=== PATIENT | female | born 2000 | race Caucasian/White ===

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

== ENCOUNTER → 2021-01-03 10:20 | Outpatient (BNVA) | payer OTHER, SELFPAY | PROVIDERS: Family Provider Nurse Practitioner Family; PCP Nurse Practitioner Family; Visit Provider Nurse Practitioner Women's Health | DX: O20.9 Hemorrhage in early pregnancy, unspecified (principal); N92.6 Irregular menstruation, unspecified; Z3A.00 Weeks of gestation of pregnancy not specified | CPT/HCPCS: 81025; 84702; 85027; 86850; 86900; 87491; 87591; 87661 ==

== ENCOUNTER → 2021-02-02 08:57 | Outpatient (BNVA) | payer OTHER, SELFPAY | PROVIDERS: Family Provider Nurse Practitioner Family; PCP Nurse Practitioner Family; Visit Provider Obstetrics & Gynecology | DX: Z34.90 Encounter for supervision of normal pregnancy, unspecified, unspecified trimester (principal) | CPT/HCPCS: 80307; 84315; 84443; 85025; 86592; 86762; 86787; 86803; 86850; 86900; 87086; 87340; 87491; 87591; 87661 ==

== ENCOUNTER → 2021-04-10 14:34 | Outpatient (BNVA) | payer BC, SELFPAY | PROVIDERS: Family Provider Nurse Practitioner Family; Visit Provider Obstetrics & Gynecology | DX: O09.899 Supervision of other high risk pregnancies, unspecified trimester (principal); Z3A.00 Weeks of gestation of pregnancy not specified | CPT/HCPCS: 81000 ==

== ENCOUNTER 2021-04-22 20:52 | Outpatient (CLI) | payer BC, SELFPAY ==
[2021-04-22 20:59] VITALS: BP 130/75; PULSE 93; RESP 16; TEMP 36.8; BMI 31.1
--- NOTE | 2021-04-22 21:07 | PC.NURSE ---
Patient states you know actually I'm feeling a lot better now. Asked patient what she would rate her pain now and she states I have a dull feeling where it was hurting but not really hurting now.
== END 2021-04-22 21:22 | disposition home or self-care (01) ==
LOC: OPOB 20:52 → OBGYN 20:55
PROVIDERS: Family Provider Nurse Practitioner Family; Visit Provider Obstetrics & Gynecology
DX: O26.899 Other specified pregnancy related conditions, unspecified trimester (principal); Z3A.00 Weeks of gestation of pregnancy not specified; R10.9 Unspecified abdominal pain
CPT/HCPCS: 99211

== ENCOUNTER → 2021-05-29 09:36 | Outpatient (BNVA) | payer BC, SELFPAY | PROVIDERS: Family Provider Nurse Practitioner Family; Visit Provider Obstetrics & Gynecology | DX: O09.899 Supervision of other high risk pregnancies, unspecified trimester (principal); O26.899 Other specified pregnancy related conditions, unspecified trimester; Z67.91 Unspecified blood type, Rh negative; Z3A.00 Weeks of gestation of pregnancy not specified | CPT/HCPCS: 82950; 84315; 85025; 86850 ==

== ENCOUNTER → 2021-06-08 08:10 | Outpatient (BNVA) | payer BC, SELFPAY | PROVIDERS: Family Provider Nurse Practitioner Family; Visit Provider Obstetrics & Gynecology | DX: O09.899 Supervision of other high risk pregnancies, unspecified trimester (principal); Z3A.00 Weeks of gestation of pregnancy not specified | CPT/HCPCS: 82951; 82952 ==

== ENCOUNTER → 2021-07-13 11:06 | Outpatient (BNVA) | payer BC, SELFPAY | PROVIDERS: Family Provider Nurse Practitioner Family; Visit Provider Obstetrics & Gynecology | DX: O09.899 Supervision of other high risk pregnancies, unspecified trimester (principal); D64.9 Anemia, unspecified; Z3A.00 Weeks of gestation of pregnancy not specified | CPT/HCPCS: 84315; 85025 ==

== ENCOUNTER 2021-07-21 09:20 | Outpatient (CLI) | payer BC, SELFPAY ==
[2021-07-21 09:25] VITALS: BMI 33.3
--- NOTE | 2021-07-21 09:30 | US_ITS ---
WS: [id number] Exam: US OB BPP wo NST [id number] Date/Time of Exam: 07/21/2021 10:17 AM Reason For Exam: GESTIONAL DIABETIC Viable intrauterine with single breech fetus noted. Fundal posterior placenta. Cervix is cl osed. Viable intrauterine with single breech fetus is noted. Biophysical profile score as follows: Amniotic fluid volume 2 tone 2 body movement 2 breathing movement 2 A total of 8/8 points US/US OB BPP NST [id number] IMPRESSION: Biophysical profile score of 8 of possible 8 points.
[2021-07-21 09:39] VITALS: BP 122/66; PULSE 94
[2021-07-21 12:25] VITALS: BP 122/66; PULSE 94; RESP 18; TEMP 36.9
== END 2021-07-21 11:40 | disposition home or self-care (01) ==
LOC: OPOB 09:27 → OBGYN 09:28
PROVIDERS: Family Provider Nurse Practitioner Family; PCP Registered Nurse; Visit Provider Obstetrics & Gynecology
DX: O24.419 Gestational diabetes mellitus in pregnancy, unspecified control (principal); Z3A.00 Weeks of gestation of pregnancy not specified
CPT/HCPCS: 59025; 76819; 99211

== ENCOUNTER 2021-07-28 10:53 | Outpatient (CLI) | payer BC, SELFPAY ==
--- NOTE | 2021-07-28 11:00 | US_ITS ---
WS: [id number] BIOPHYSICAL PROFILE AMNIOTIC FLUID HISTORY: gestational diabetes COMPARISON: 07/21/2021 Cardiac activity: 136 bpm. Cervix: closed. Presentation: Breech. Placenta: Fundal, no previa or abruption. Placenta grade: 1 Parameters are as follows: Breathin Movement: 2 Tone: 2 Fluid volume: 2 Amniotic fluid index: 11.6 cm. Largest vertical pocket of amniotic fluid is 5.0 cm. US/US OB BPP wo NST [id number] IMPRESSION: 1. Biophysical profile score: 8/8. 2. Normal amniotic fluid index. 3. Breech.
== END 2021-07-28 10:54 | disposition home or self-care (01) ==
LOC: OPOB 10:59
PROVIDERS: Family Provider Nurse Practitioner Family; PCP Registered Nurse; Visit Provider Obstetrics & Gynecology
DX: O24.419 Gestational diabetes mellitus in pregnancy, unspecified control (principal); Z3A.00 Weeks of gestation of pregnancy not specified
CPT/HCPCS: 76819; 84315; 87081

== ENCOUNTER 2021-08-03 14:50 | Outpatient (CLI) | payer BC, SELFPAY ==
[2021-08-03] VITALS (11 sets, daily range): BP systolic 111–170; BP diastolic 56–85; PULSE 78–130; TEMP 36.1–36.3
--- NOTE | 2021-08-03 15:06 | USR_ITS ---
PROCEDURE INFORMATION: Exam: US Biophysical Profile Without Non-Stress Test Exam date and time: 08/03/2021 5:41 PM Age: 21 years old Clinical indication: Other: Nonreactive nst; ; Additional info: Non reactive nst. Gestational dm, will call when ready al 1520 TECHNIQUE: Imaging protocol: US biophysical profile without non-stress testing. COMPARISON: US OB BPP wo NST [id number] 07/28/2021 11:12 AM FINDINGS: Gestation: Single, viable intrauterine gestation. heart rate: heart rate (FHR) is 153 bpm. Presentation: Fetus is in breech presentation. Placenta: The placenta is fundal. No evidence for placenta previa. Amniotic fluid: Normal amount of amniotic fluid, with an amniotic fluid index of 10.31 cm using a 4 quadrant method. BIOPHYSICAL PROFILE: breathing movement (BPP): 2 out of 2. body movement (BPP): 2 out of 2. tone (BPP): 2 out of 2. Amniotic fluid (BPP): 2 out of 2. MATERNAL ANATOMY: Cervix: The cervix is unremarkable. There is no shortening or effacement. The cervix measures 4.8 cm using a transabdominal measurement. US/US OB BPP wo NST [id number] IMPRESSION: 1. Single, viable intrauterine gestation. 2. Biophysical profile 09/18.
== END 2021-08-03 18:00 | disposition home or self-care (01) ==
LOC: OPOB 14:57 → OBGYN 14:59
PROVIDERS: Family Provider Nurse Practitioner Family; PCP Registered Nurse; Visit Provider Obstetrics & Gynecology
DX: O24.419 Gestational diabetes mellitus in pregnancy, unspecified control (principal); Z3A.00 Weeks of gestation of pregnancy not specified
CPT/HCPCS: 59025; 76819; 84315; 87086; 99211

== ENCOUNTER 2021-08-07 11:24 | Outpatient (CLI) | payer BC, SELFPAY ==
--- NOTE | 2021-08-07 11:49 | US_ITS ---
WS: [id number] BIOPHYSICAL PROFILE AMNIOTIC FLUID HISTORY: Gestational diabetes. COMPARISON: 08/03/2021 Cardiac activity: 131 bpm. Cervix: Poorly visualized. Obscured by the body. Position: Breech. Placenta: Fundal Placenta grade: 1 Parameters are as follows: Breathin Movement: 2 Tone: 2 Fluid volume: 2 An occluded index: 10.5 cm. Largest vertical pocket of amniotic fluid 3.6 cm. US/US OB BPP wo NST [id number] IMPRESSION: 1. Biophysical profile score: 8/8. 2. Low normal amniotic fluid index. 3. Breech.
== END 2021-08-07 11:25 | disposition home or self-care (01) ==
PROVIDERS: PCP Registered Nurse; Visit Provider Obstetrics & Gynecology
DX: O24.419 Gestational diabetes mellitus in pregnancy, unspecified control (principal); O09.899 Supervision of other high risk pregnancies, unspecified trimester; Z3A.00 Weeks of gestation of pregnancy not specified
CPT/HCPCS: 76819; 84315; 87086

== ENCOUNTER 2021-08-15 06:00 | Day surgery (SDC) | payer BC, SELFPAY ==
--- NOTE | 2021-08-15 12:30 | P.ANESUD_ITS ---
Pre-Anesthetic Update Pre-Anesthetic Assessment: Date of Surgery/Procedure: 08/15/21 Preop Carey gnosis: breech presentation Proposed Procedure: Operation Date: 08/15/21 12:00 Proposed Procedures p Section 68859,O32.1XXO(Not Applicable) - Leti Hill MD Changes from Pre-Anesthetic Assessment: none Last Intake: 2300 08/14/21 Cardiac Studies: No Data to Display
--- NOTE | 2021-08-15 12:30 | ANES.PAUD2 ---
Pre-Anesthetic Update Pre-Anesthetic Assessment: Date of Surgery/Procedure: 08/15/21 Preop Diagnosis: breech presentation Proposed Procedure: Operation Date: 08/15/21 12:00 Proposed Procedures p Section 84775,O32.1XXO(Not Applicable) - Leti Hill MD Changes from Pre-Anesthetic Assessment: none Last Intake: 5401 08/14/21 Cardiac Studies: No Data to Display
--- NOTE | 2021-08-15 14:33 | ANE.PACU2 ---
Inpatient post-anesthesia follow up: Airway intact: Yes Vital signs: Temperature Pulse Rate Respiratory Rate Blood Pressure Pulse Oximetry Oxygen Delivery Me thod Oxygen Flow Rate Fraction of Inspir ed Oxygen Hydration adequate: Yes Nausea and vomiting: No Pain level: 2 Mental status: Baseline
== END 2021-08-15 17:00 | disposition home or self-care (01) ==
LOC: OPS 08-31 08:11
PROVIDERS: PCP Registered Nurse; Visit Provider Obstetrics & Gynecology
DX: O32.1XX0 Maternal care for breech presentation, not applicable or unspecified (principal); O24.419 Gestational diabetes mellitus in pregnancy, unspecified control; Z3A.00 Weeks of gestation of pregnancy not specified
CPT/HCPCS: J1885; J2274; J2405

== ENCOUNTER 2021-08-15 10:00 | Inpatient (IN) | payer BC, SELFPAY ==
[2021-08-15] VITALS (30 sets, daily range): BP systolic 102–134; BP diastolic 57–85; PULSE 49–92; RESP 14–18; TEMP 36.2–36.7; O2SAT 98–99; BMI 34.5
[2021-08-15] MEDS: metoclopramide 5 mg/mL SDV 2 mL 10 MG IVP (10:42)
[2021-08-15] MEDS: citric acid-sodium citrate 30 mL UDC PO (10:42)
[2021-08-15] MEDS: famotidine 20 mg/2 mL INJ IVP (10:42)
[2021-08-15] MEDS: lactated ringers 1,000 ML 999 ML IV (10:43)
--- NOTE | 2021-08-15 11:30 | PM.OPHPUD ---
Labor & Delivery H&P Update Date of Procedure: August 15, 2021 Date H&P Performed: 08/08/21 H&P update information: I have reviewed H&P completed within last 30 days, I have examined patient prior to procedure and Changes to prior documentation as noted here Changes to previous documentation: The patient is a gestational diabetic with poor control. The baby is persistent breech. I am taking the baby at 38 +6 weeks due to poor glucose control during . Admission Diagnosis: Preop diagnosis: breech presentation Related Problem List Diagnoses (1) Rh negative state in antepartum period: (2) Gestational diabetes: (3) Maternal varicella, non-immune: (4) Supervision of other high risk , antepartum: (5) Breech presentation: (6) Poor glycemic control:
[2021-08-15 11:32] LABS: Basophils % 0.1 %; Eosinophils % 0.5 %; Hematocrit 36.1 % (37.0-47.0); Hemoglobin 11.9 g/dL (11.5-15.3); Lymphocytes # 1.6 10^3/uL (1.5-6.5); Lymphocytes % 19.4 %; Mean Corpuscular Hemoglobin 28.6 pg (28.0-34.0); Mean Corpuscular Volume 86.8 fl (81-99); Mean Platelet Volume 11.4 fL (7.4-10.4); Monocytes # 0.7 10^3/uL (0.2-0.9); Neutrophils # 5.65 10^3/uL (1.8-8.0); Neutrophils % 70.4 %; Nucleated Red Blood Cells % 0 %; Platelet Count 239 10^3/cmm (130-400); Red Blood Count 4.16 10^6/uL (4.1-5.3); Red Cell Distribution Width 13.7 % (12.1-15.1)
--- NOTE | 2021-08-15 11:43 | PC.NURSE ---
[address] Mancilla and said no one available at this time to do surgery. Stated We'll be here when someone is ready . Pt ready on our end.
[2021-08-15] MEDS: lactated ringers 1,000 ML 125 ML IV ×2 (11:54→16:39)
--- NOTE | 2021-08-15 14:08 | P.OP_ITS ---
Operative Report Date of procedure: August 15, 2021 Pre-op diagnosis: Preop Diagnosis breech presentation Post-op diagnosis: same-delivered Post-op findings: term in the alma rosa breech presentation Procedure done: primary Specimens removed/disposition: placenta-discarded Surgeon: Leti Hill Anesthesia: Other (spinal) and None Estimated blood loss (mL): 500 IV fluids (mL): 1,000 Urine output (mL): 50 Complications: none Condition: stable Disposition: PACU Brief History: The patient presented for primary for persistent breech presentation Procedure: The patient was taken to the operating room where spinal anesthesia was administered and found to be adequate. She was prepped and draped in the normal sterile fashion in the dorsal supine position with a leftward tilt. A Pfannenstiel skin incision was made and carried down to the underlying layer of fascia. The fascia was nicked in the midline and extended laterally with the Combs scissors. The fascia was then tented up and the rectus muscles dissected off sharply. The rectus muscles were and the peritoneum entered bluntly with the digit. The peritoneal incision was extended superiorly and inferiorly with good visualization of the bladder. The Robson O retractor was placed. It was clear of any bowel or omentum. The bladder flap was created sharply with the Metzenbaum scissors. A low transverse uterine incision was made and carried down to the bag of water. The bag of water was ruptured and the uterine incision extended cephalocaudad. The breech was grasped and brought through the incision. This was followed by the body. The baby was turned to deliver the shoulders and then the head was delivered. There was a nuchal times one and a body cord. There was blood from delivery in the nose and mouth. The nose and mouth were bulb suctioned quickly, but the baby had taken his first breath. The baby was allowed to rest, while being dried, for 1 minute and then the cord was clamped and cut. The baby was handed to the waiting medical transcriber. The placenta was delivered by expression. The uterus was exteriorized and cleared of all clots and debris. The uterine incision was closed with 0 Vicryl in a running fashion. A second imbricating layer of 3-0 Monocryl was used to close the uterus. The bladder flap was closed with 3-0 Monocryl. There was excellent hemostasis. The Robson O retractor was removed. The uterus was returned to the abdomen. The peritoneum was closed with 3-0 Monocryl, incorporating the rectus muscle. The fascia was closed with 0 Vicryl in 2 separate sutures overlapping in the midline. The skin was closed with absorbable carla. Apgars on baby 6 at 1 minute and 8 at 5 minutes. weight 8 pounds 10 ounces. Mother and baby were stable post delivery.
[2021-08-15] MEDS: ondansetron 2 mg/ML SDV 2 mL 4 MG IVP (15:37)
--- NOTE | 2021-08-15 17:11 | PC.NURSE ---
PT STILL IN OB PACU
[2021-08-15] MEDS: ferrous sulfate EC 325 mg Tablet PO (19:13)
[2021-08-15] MEDS: docusate sodium 100 mg Capsule PO (19:13)
[2021-08-15] MEDS: ketorolac 30 mg/mL INJ IVP (22:56)
[2021-08-16 04:03] LABS: Hematocrit 33.8 % (37.0-47.0); Hemoglobin 10.8 g/dL (11.5-15.3); Mean Corpuscular Hemoglobin 28.8 pg (28.0-34.0); Mean Corpuscular Volume 90.1 fl (81-99); Mean Platelet Volume 11.3 fL (7.4-10.4); Platelet Count 217 10^3/cmm (130-400); Red Blood Count 3.75 10^6/uL (4.1-5.3); Red Cell Distribution Width 13.6 % (12.1-15.1); White Blood Count 12.2 10^3/uL (4.5-13.0)
[2021-08-16 06:57] VITALS: BP 110/78; PULSE 78; TEMP 36.7; O2SAT 98
[2021-08-16] MEDS: prenatal vitamin Capsule 1 CAP PO (08:07)
[2021-08-16] MEDS: HYDROcodone-acetaminophen 5-325 mg Tablet PO ×2 (08:08→14:14)
[2021-08-16] MEDS: docusate sodium 100 mg Capsule PO ×2 (08:08→17:45)
[2021-08-16] MEDS: ibuprofen 800 mg tablet PO ×3 (09:09→21:37)
[2021-08-16 09:11] VITALS: BP 118/68; PULSE 98; RESP 16; TEMP 36.9; O2SAT 95
--- NOTE | 2021-08-16 13:35 | P.PN_ITS ---
Subjective Subjective: The patient is doing well today. No concerns Vitals/I&O/Wt Last Vital Signs Temp 98.4 F 08/16/21 09:11 Pulse 98 08/16/21 09:11 Resp 16 08/16/21 09:11 BP 118/68 08/16/21 09:11 Pulse Ox 95 08/16/21 09:11 08/15/21 08/16/21 08/16/21 22:59 06:59 14:59 Intake Total 1593.75 / 1593.75 Output Total 750 / 800 1600 / 2400 Balance 843.75 / 793.75 -1600 / -806.25 Weight last 48 hrs Weight 183 lb Weight 183 lb Physical Exam Const: COMMON NORMALS: no acute distress, patient oriented x3, no limitations, healthy appearing, alert and well nourished GENERAL APPEARANCE: cooperative, comfortable, well kempt and well developed ORIENTATION/CONSCIOUSNESS: Yes awake, Yes oriented to person, Yes oriented to place and Yes oriented to time Resp: COMMON NORMALS: normal respiratory effort EFFORT & INSPECTION: Yes able to speak in complete sentences GI: COMMON NORMALS: Soft to palpation and non-tender PALPATION: Yes Soft to palpation Extremity: COMMON NORMALS: no calf tenderness Neuro: COMMON NORMALS: patient oriented x3 SENSORIUM/ORIENTATION: Yes alert, Yes oriented to person, Yes oriented to place and Yes oriented to time Psych: APPEARANCE: Yes well kempt Urinary Catheter Management: Currie: Cath Placed During This Visit: yes, but has since been removed by the nurse Reason for Continuing Indwelling Catheter: Decision to DC Catheter Urinary Catheter Date of Insertion: 08/15/21 Urinary Catheter Time of Insertion: 12:50 Date Urinary Catheter Removed: 08/16/21 Time Urinary Catheter Discontinued: 03:00 Data : 08/16/21 03:08 Attestations Medical Necessity Statement*: The patient had a . She will be here 2 midnights. Coding Level of Care Code Acute Database Marketing Specialist for Anabelle Reyes
[2021-08-16 15:51] VITALS: BP 114/71; PULSE 76; RESP 17; TEMP 37.2; O2SAT 96
[2021-08-16 21:55] VITALS: BP 117/74; PULSE 80; TEMP 36.8; O2SAT 97
[2021-08-17] MEDS: HYDROcodone-acetaminophen 5-325 mg Tablet PO ×2 (02:42→12:33)
[2021-08-17 06:00] VITALS: BP 123/75; PULSE 74; TEMP 37.2
--- NOTE | 2021-08-17 08:01 | P.DS_ITS ---
Discharge Providers Date of Admission: 08/15/21 10:00 Date of Discharge: August 17, 2021 Attending Provider at Admission: Leti Hill MD Attending Provider at Discharge: Leti Hill MD Primary Care Provider: WILLIAM Tenorio Diagnoses at Discharge Discharge Diagnosis (1) Rh negative state in antepartum period: Status: Acute (2) Gestational diabetes: Status: Acute (3) Maternal varicella, non-immune: Status: Acute (4) Supervision of other high risk , antepartum: Status: Acute (5) Breech presentation: Status: Acute (6) Poor glycemic control: Status: Acute Reason for Visit Reason for Visit: Hospital Course Hospital Course The patient was admitted for primary for breech presentation. She did well /postop and was ready for discharge on day #2 Physical Exam Narrative: doing well today. No concerns. Breast feeding Const: COMMON NORMALS: no acute distress, patient oriented x3, no limitations, healthy appearing, alert and well nourished GENERAL APPEARANCE: cooperative, comfortable, well kempt and well developed ORIENTATION/CONSCIOUSNESS: Yes awake, Yes oriented to person, Yes oriented to place and Yes oriented to time Resp: COMMON NORMALS: normal respiratory effort EFFORT & INSPECTION: Yes able to speak in complete sentences GI: COMMON NORMALS: Soft to palpation and non-tender PALPATION: Yes Soft to palpation Extremity: COMMON NORMALS: no calf tenderness Neuro: COMMON NORMALS: patient oriented x3 SENSORIUM/ORIENTATION: Yes alert, Yes oriented to person, Yes oriented to place and Yes oriented to time Psych: APPEARANCE: Yes well kempt Urinary Catheter Management: Currie: Cath Placed During This Visit: yes, but has since been removed by the nurse Reason for Continuing Indwelling Catheter: Decision to DC Catheter Urinary Catheter Date of Insertion: 08/15/21 Urinary Catheter Time of Insertion: 12:50 Date Urinary Catheter Removed: 08/16/21 Time Urinary Catheter Discontinued: 03:00 Discharge Data Studies Completed and Pending Pending at discharge Category Date Time Status Comprehensive Metabolic Panel Routine Lab 08/15/21 10:00 Ordered Laboratory Results WBC 12.2 10^3/uL (4.5-13.0) 08/16/21 03:08 RBC 3.75 10^6/uL (4.1-5.3) L 08/16/21 03:08 Hgb 10.8 g/dL (11.5-15.3) L 08/16/21 03:08 Hct 33.8 % (37.0-47.0) L 08/16/21 03:08 MCV 90.1 fl (81-99) 08/16/21 03:08 MCH 28.8 pg (28.0-34.0) 08/16/21 03:08 MCHC 32.0 g/dL (30.0-36.0) 08/16/21 03:08 RDW 13.6 % (12.1-15.1) 08/16/21 03:08 Plt Count 217 10^3/cmm (130-400) 08/16/21 03:08 MPV 11.3 fL (7.4-10.4) H 08/16/21 03:08 Neut % (Auto) 70.4 % 08/15/21 10:20 Lymph % (Auto) 19.4 % 08/15/21 10:20 [place] % (Auto) 9.0 % 08/15/21 10:20 Eos % (Auto) 0.5 % 08/15/21 10:20 Baso % (Auto) 0.1 % 08/15/21 10:20 Neut # (Auto) 5.65 10^3/uL (1.8-8.0) 08/15/21 10:20 Lymph # (Auto) 1.6 10^3/uL (1.5-6.5) 08/15/21 10:20 [place] # (Auto) 0.7 10^3/uL (0.2-0.9) 08/15/21 10:20 Eos # (Auto) 0.0 10^3/uL (0.0-0.8) 08/15/21 10:20 Baso # (Auto) 0.0 10^3/uL (0.0-0.1) 08/15/21 10:20 Nucleated RBC % (auto) 0 % 08/15/21 10:20 Nucleated RBCs # 0.0 /100WBC 08/15/21 10:20 Blood Type O Negative 08/15/21 10:20 Rho(D) Type Negative 08/15/21 10:20 Antibody Screen Negative 08/15/21 10:20 Screen Negative (Negative) 08/16/21 03:08 Vitals Last Vital Signs Temp 98.9 F 08/17/21 06:00 Pulse 74 08/17/21 06:00 Resp 17 08/16/21 15:51 BP 123/75 08/17/21 06:00 Pulse Ox 97 08/16/21 21:55 Discharge Plan Discharge Patient Disposition: Home Condition: Stable Prescriptions: New docusate sodium 100 mg Capsule 100 mg PO BID Qty: 60 0RF ibuprofen 800 mg Tablet 800 mg PO TID Qty: 30 0RF hydrocodone-acetaminophen 5-325 mg Tablet 1 tab PO Q4H PRN (Reason: Moderate To Severe Pain) Qty: 30 0RF Continued Gummies 400 mcg-35 mg- 25 mg-5 mg tablet,chewable PO 0RF No Action (DME) blood-glucose meter Misc See Rx Instructions .Route Qty: 1 0RF Rx Instructions: As directed (DME) Blood Glucose Test Strip See Rx Instructions .Route Qty: 120 3RF Rx Instructions: As directed (DME) lancets [BD Ultra-Fine II Lancets] 30 gauge misc See Rx Instructions .Route Qty: 120 3RF Rx Instructions: As directed Discharge Orders: Discharge Order (Routine); Ordered 08/17/21 Ordered By: Leti Hill Patient Instructions: Opioid Safety Discharge Attestations Time Spent in Discharge Care*: less than 30 min Quality Metrics Clinical Quality Measures [ No reported AMI, CVA or VTE this stay] Coding Level of Care Code Acute Chg FW DC note Diagnoses Rh negative state in antepartum period O26.899; Z67.91 Gestational diabetes O24.419 Maternal varicella, non-immune O09.899; Z28.3 Supervision of other high risk , antepartum O09.899 Breech presentation O32.1XX0 Poor glycemic control R73.09
[2021-08-17 08:30] VITALS: BP 118/68; TEMP 37.1
[2021-08-17] MEDS: prenatal vitamin Capsule 1 CAP PO (08:43)
[2021-08-17] MEDS: ibuprofen 800 mg tablet PO ×3 (08:43→17:11)
[2021-08-17] MEDS: docusate sodium 100 mg Capsule PO (08:43)
[2021-08-17] MEDS: ferrous sulfate EC 325 mg Tablet PO (08:43)
[2021-08-17 17:00] VITALS: BP 128/72; TEMP 36.9
[2021-08-17 17:44] VITALS: BP 128/72; PULSE 16; RESP 72; TEMP 36.9
== END 2021-08-17 17:35 | disposition home or self-care (01) | DRG 787 ==
LOC: OPOB 10:00 → OBGYN 10:00
PROVIDERS: Admitting Provider Obstetrics & Gynecology; PCP Registered Nurse; Visit Provider Obstetrics & Gynecology
PROC: 10D00Z1 Extraction of Products of Conception, Low, Open Approach (ICD-10-PCS; CPT 59514; principal; 2021-08-15 12:00)
DX: O32.1XX0 Maternal care for breech presentation, not applicable or unspecified (principal); O36.0930 Maternal care for other rhesus isoimmunization, third trimester, not applicable or unspecified; O24.420 Gestational diabetes mellitus in childbirth, diet controlled; O69.2XX0 Labor and delivery complicated by other cord entanglement, with compression, not applicable or unspecified; Z3A.38 38 weeks gestation of pregnancy; Z37.0 Single live birth
CPT/HCPCS: 36415; 51702; 59025; 59409; 85025; 85027; 85460; 86850; 86900; 90384; 96374; 99211; J1885; J2274; J2405; J2765; J3490

== ENCOUNTER 2021-08-23 07:41 | Outpatient (CLI) | payer BC, SELFPAY ==
--- NOTE | 2021-08-23 07:30 | CT_ITS ---
WS: [id number] CT HEAD NONCONTRAST HISTORY: H57.02 - Anisocoria TECHNIQUE: Contiguous axial imaging performed through the brain in 2.5 mm imaging. Bone and soft tiss ue windows. Sagittal and coronal reformats reviewed. All CT scans at [facility] use at least one of these dose optimization techniques: automated exposure control; mA and/or kV adjustment per pa tient size (includes targeted exams where dose is matched to clinical indication); or iterative recon struction. DLP: 1005.58 mGy.cm COMPARISON: None available. No acute intracranial hemorrhage, midline shift or mass effect. No atrophy or prior infarcts or herniation. Ventricles: Normal size with no hydrocephalus. Paranasal sinuses: As visualized are clear. Mastoid air cells: Well pneumatized. Calvarium and scalp: Skull is intact with no soft tissue edema or swelling. CT/CT head wo con* [id number] IMPRESSION: Negative head CT.
== END 2021-08-23 07:42 | disposition home or self-care (01) ==
LOC: RAD 07:43
PROVIDERS: PCP Registered Nurse; Visit Provider Registered Nurse
DX: H57.02 Anisocoria (principal); H53.2 Diplopia
CPT/HCPCS: 70450

== ENCOUNTER → 2021-10-03 08:10 | Outpatient (BNVA) | payer BC, SELFPAY | PROVIDERS: PCP Registered Nurse; Visit Provider Obstetrics & Gynecology | DX: O24.419 Gestational diabetes mellitus in pregnancy, unspecified control (principal); Z3A.00 Weeks of gestation of pregnancy not specified | CPT/HCPCS: 82947 ==

== ENCOUNTER → 2022-01-11 14:32 | Outpatient (BNVA) | payer BC, SELFPAY | PROVIDERS: PCP Registered Nurse; Visit Provider Student in an Organized Health Care Education/Training Program | DX: M67.432 Ganglion, left wrist (principal) | CPT/HCPCS: 73110 ==

== ENCOUNTER 2022-01-24 10:14 | Day surgery (SDC) | payer BC, SELFPAY ==
[2022-01-23 12:17] VITALS: BMI 31.1
[2022-01-24] VITALS (8 sets, daily range): BP systolic 97–148; BP diastolic 59–78; PULSE 57–80; RESP 16–20; TEMP 36.1–36.6; O2SAT 94–97
[2022-01-24 10:41] LABS: OR HCG Qualitative Urine Negative (Negative)
[2022-01-24] MEDS: sodium chloride 0.9% 1,000 ML 30 ML IV (10:48)
[2022-01-24] MEDS: ketorolac 30 mg/mL INJ IVP (10:49)
[2022-01-24] MEDS: acetaminophen 1,000 MG/100 ML PIGGYBACK 400 MG IV (10:51)
--- NOTE | 2022-01-24 10:51 | ANES.PREANE2 ---
Pre-Anesthetic Assessment Height/Weight: Height 1.57 m Weight 77.111 kg Temp Pulse Resp BP Pulse Ox O2 Del Method 97 F L 68 18 148/78 97 01/24/22 10:33 01/24/22 10:33 01/24/22 10:33 01/24/22 10:33 01/24/22 10:33 01/24/22 10:36 Preop Diagnosis: Left wrist dorsal ganglion cyst Operation Date: 01/24/22 11:55 Proposed Procedures p Excision Of Ganglion Cyst Left 16247,M67.432(Left) - Cipriano Huntington, Familial anesthetic complications: None Was Beta Galo taken within 24 hours: N/A Was Clonidine taken within 24 hours: N/A Last intake: Intake Last Liquid Date 01/23/22 Last Liquid Time 20:00 Last Solid Date 01/23/22 Last Solid Time 20:00 Social No alcohol and No tobacco Exam alert, oriented x 3, clear to auscultation bilaterally and regular rate & rhythm Airway Mallampati: Class III Dentition: chipped Anesthetic Plan ASA status: 2 Anesthesia: MAC Risk of > 500 ml blood loss (7ml/kg in children): No Medications/Allergies Home Medications Medication Instructions Recorded Confirmed Last Taken Type sertraline 50 mg tablet 50 mg PO DAILY 90 days #90 tabs 01/18/22 01/23/22 01/23/22 Rx Allergies Allergy/AdvReac Type Severity Reaction Status Date / Time No Known Allergies Allergy Verified 01/18/22 11:11 Current Medications Generic Name Dose Route Start Last Admin Trade Name Freq PRN Reason Stop Dose Admin Sodium Chloride 1,000 mls @ 30 mls/hr 01/24/22 10:30 01/24/22 10:48 Sodium Chloride 0.9% IV 01/25/22 10:29 30 mls/hr .Q24H IMANI Administration PFSH Anesthesia Medical History Ganglion cyst of dorsum of left wrist No pertinent past medical history neghx: htn,dm,thyroid,dvt/pe PCP: Anil Shaver Surgical History History of delivery No pertinent past surgical history Family History Grandfather Diabetes Paternal Hypertension Maternal Stroke Paternal Denies family history of Colon cancer Ovarian cancer Heart disease Hypercholesteremia Breast cancer Uterine cancer Thyroid disease Social History Smoking and tobacco status: never smoked Alcohol intake: never Adopted: No Caregiver/support person: No Lives independently: No Household members: spouse and children Marital status: service: No Current occupational status: unemployed Sexually active: Yes Current gender identity: Female Female Reproductive History Date of last menstrual period: 12/31/21 Data Anesthesia Cardiac Studies: No Data to Display
--- NOTE | 2022-01-24 11:46 | W.PM.OPSUD ---
Surgery/Procedure H&P Update DATE OF PROCEDURE: January 24, 2022 DATE H&P PERFORMED: 01/11/22 CHANGES TO PREVIOUS DOCUMENTATION: None PREOP DIAGNOSIS: Left wrist dorsal ganglion cyst PRIMARY INDICATION FOR PROCEDURE: Left wrist dorsal ganglion cyst PLANNED PROCEDURE: Operation Date: 01/24/22 11:55 Proposed Procedures p Excision Of Ganglion Cyst Left 65581,M67.432(Left) - Cipriano Coyle DO
[2022-01-24] MEDS: ceFAZolin 2,000 MG in sodium chloride 0.9% (plus) 50 ML 100 MG IV (13:15)
[2022-01-24] MEDS: sodium bicarbonate 1 mEq/mL SDV 50mL XX (13:20)
--- NOTE | 2022-01-24 14:05 | PM.OP2 ---
Brief Operative Note Date of procedure: 01/24/22 Pre-op diagnosis: Left dorsal wrist ganglion cyst Post-op diagnosis: same Procedure Done: Left dorsal wrist ganglion cyst excision Surgeon: Cipriano Coyle Estimated blood loss (mL): 5 Complications: None Post-op Plan: Patient taken to PACU in stable condition. Patient recovering well. Patient received appropriate discharge instruction as well as pain medication postoperatively. She will follow-up with me in the office in 2 weeks. Patient understands agrees with current plan. All questions answered. Condition: stable Disposition: same day Coding Level of Care Code Acute Donor Relations Coordinator for Anabelle Reyes
--- NOTE | 2022-01-24 14:06 | P.OP_ITS ---
Operative Report Date of procedure: January 24, 2022 Pre-op diagnosis: Preop Diagnosis Left wrist dorsal ganglion cyst Post-op diagnosis: Same Procedure done: Left wrist dorsal ganglion cyst excision Specimens removed/disposition: Left wrist dorsal ganglion cyst removed and sent for pathology Pathology: Left wrist dorsal ganglion cyst removed and sent for pathology Surgeon: Cipriano Coyle DO Estimated blood loss: 5 mL 17 minutes IV fluids: 200 mL Complications: None Findings: See operative report narrative Condition: stable Disposition: same day Brief History: Patient was seen work-up in the outpatient setting with findings consistent for preoperative diagnosis of a painful left dorsal wrist ganglion cyst. She has a at home and continued to have pain and this debilitates her activity level and what she can do that she has a state home mom. About treatment options are as nonoperative operative mention she elects proceed with surgical intervention she understands risk benefits complication alternatives surgical nonsurgical treatment options. Understanding her risk with surgery she agrees to proceed with surgical intervention of a left dorsal ganglion cyst excision. All questions answered. Consent was obtained in the office. Procedure: Patient was seen evaluate in the preoperative holding area. Consent was reviewed and signed with patient. Correct extremity was then marked. Patient then was seen evaluated by anesthesia department once ready for surgery she was brought back to the operative suite. She was placed on a OR table with an armboard to the left upper extremity all bony prominences well-padded patient properly secured to the bed. Nonsterile tourniquet applied to the left upper extremity arm. The right upper extremity was then prepped and draped sterile orthopedic fashion. Final timeout performed appropriate antibiotics been given. Prior to tourniquet being insufflated standard local anesthetic was placed around the incision of the dorsal wrist. Esmarch tourniquet was used exsanguinate the left upper extremity and tourniquet was insufflated 250 mmHg. Standard longitudinal incision was made centering over the dorsal ganglion cyst of the left wrist. Sharp scalpel incision was made through skin and subcutaneous tissue. I then switched to Littler dissection scissors identified my cutaneous nerve branches of the superficial radial nerve were protected at the case. Identified the large dorsal ganglion cyst and at this point time identified between the extensor tendons. The extensor tendons were then protected with a Kasdan retractors by my assistance and I then utilized bipolar electrocautery as well as dissection scissors completely ellipsed the ganglion cyst and identified the stalk which was then cut at the base. I then utilized thermal bipolar electrocautery to coagulate the dorsal capsule at the area where the stalk arise. The cyst was then sent off for pathology. I then subsequently deflated the tourniquet and hemostasis was satisfactory with bipolar electrocautery. Wound bed was thoroughly irrigated. Wrist was taken through range of motion and patient had no evidence of wrist instability, patient had a negative Adam shift test. At this point time incision was then reapproximated in layered fashion utilizing 3-0 Vicryl suture and nylon 4-0 suture. Incision w as then dressed with Xeroform 4 x 4's ABD Curlex and a soft dressing with Jeff wrap. Patient was then awakened from anesthesia and taken to PACU in stable condition. Disposition: Patient taken to PACU in stable condition will receive appropriate discharge instruction as well as pain medication postoperatively. She will follow-up with me in the office in 2 weeks. Patient understands and agrees with current plan. All questions answered.
--- NOTE | 2022-01-24 14:06 | PM.PACU ---
PACU note Narrative: Patient taken to PACU in stable condition. Patient recovering well. Dressing on in place clean dry and intact. Fingertips warm well-perfused brisk capillary refill less than 2 seconds. She able to wiggle fingers. Decreased sensation distally secondary to local anesthesia. Exam: awake Disposition: discharged
--- NOTE | 2022-01-24 16:37 | ANE.PACU2 ---
Inpatient post-anesthesia follow up: Airway intact: Yes Vital signs: Temperature 97.7 F Pulse Rate 62 Respiratory Rate 17 Blood Pressure 97/66 Pulse Oximetry 95 Oxygen Delivery Me thod Room Air Oxygen Flow Rate Fraction of Inspir ed Oxygen Hydration adequate: Yes Nausea and vomiting: No Pain level: 1 Mental status: Baseline
== END 2022-01-24 15:05 | disposition home or self-care (01) ==
PROVIDERS: Anesthesiology; PCP Registered Nurse; Visit Provider Student in an Organized Health Care Education/Training Program
PROC: (CPT 25111; principal; 2022-01-24 11:45)
DX: M67.432 Ganglion, left wrist (principal)
CPT/HCPCS: 25111; 81025; 84703; 88304; J0131; J0690; J1885; J2704; J3010; J7030

== ENCOUNTER → 2022-02-26 16:00 | Outpatient (BNVA) | payer BC, SELFPAY | PROVIDERS: PCP Registered Nurse; Visit Provider Obstetrics & Gynecology | DX: Z01.419 Encounter for gynecological examination (general) (routine) without abnormal findings (principal) | CPT/HCPCS: 88175 ==

== ENCOUNTER → 2022-08-15 11:12 | Outpatient (BNVA) | payer BC, SELFPAY | PROVIDERS: PCP Registered Nurse; Visit Provider Nurse Practitioner Women's Health | DX: R10.2 Pelvic and perineal pain (principal) | CPT/HCPCS: 76830 ==

== ENCOUNTER → 2023-06-25 14:58 | Outpatient (BNVA) | payer BC, SELFPAY | PROVIDERS: PCP Registered Nurse; Visit Provider Registered Nurse | DX: L98.9 Disorder of the skin and subcutaneous tissue, unspecified (principal) | CPT/HCPCS: 88305 ==

== ENCOUNTER → 2023-07-30 07:44 | Outpatient (BNVA) | payer SELFPAY | PROVIDERS: PCP Registered Nurse; Visit Provider Nurse Practitioner Women's Health | DX: Z30.014 Encounter for initial prescription of intrauterine contraceptive device (principal) | CPT/HCPCS: 81025 ==

== ENCOUNTER 2024-05-11 17:50 | Emergency (ER) | payer OTHER, SELFPAY ==
[2024-05-11 18:09] VITALS: BP 115/64; PULSE 66; RESP 18; TEMP 36.6; O2SAT 97; BMI 31.1
--- NOTE | 2024-05-11 18:21 | ED_ITS ---
HPI - Abdominal Pain 2 General: Chief Complaint: Abdominal Pain Stated Complaint: abd pain Time Seen by Provider: 05/11/24 18:18 History of Present Illness: 24-year-old female with no significant p ast medical history who presents emergency room with right lower quadrant abdominal pain. She describes a sharp pain in her right adnexal region. No nausea or vomiting. No dysuria. She describes a cramping type pain. No chest pain. No fevers. Related Data Previous Rx's ?Medication ?Instructions ?Recorded sertraline 50 mg tablet 50 mg PO DAILY 90 days #90 t abs 04/23/24 diclofenac sodium 50 mg 50 mg PO BID PRN pain #14 ta bs 05/11/24 tablet,delayed release Allergies Allergy/AdvReac Type Severity Reaction Status Date / Time No Known Allergies Allergy Verified 12/27/23 14:08 Review of Systems 2 Narrative: Constitutional symptoms: Negative except as documented in HPI. Skin symptoms: Negative except as documented in HPI. Eye symptoms: Negative except as documented in HPI. ENMT symptoms: Negative except as documented in HPI. Respiratory symptoms: Negative except as documented in HPI. Cardiovascular symptoms: Negative except as documented in HPI. Gastrointestinal symptoms: Negative except as documented in HPI. Genitourinary symptoms: Negative except as documented in HPI. Musculoskeletal symptoms: Negative except as documented in HPI. Neurologic symptoms: Negative except as documented in HPI. Psychiatric symptoms: Negative except as documented in HPI. Endocrine symptoms: Negative except as documented in HPI. PFSH ED 2 PFSH: Medical History depression Maternal varicella, non-immune Gestational diabetes No pertinent past medical history neghx: htn,dm,thyroid,dvt/pe PCP: Anil Shaver Surgical History History of surgical removal of ganglion cyst (~01/2022) History of delivery Family History Grandfather Diabetes Paternal Hypertension Maternal Stroke Paternal Denies family history of Colon cancer Ovarian cancer Heart disease Hypercholesteremia Breast cancer Uterine cancer Thyroid disease Social History Smoking and tobacco/nicotine status: never used tobacco/nicotine Physical Exam 2 Narrative: EXAM NARRATIVE: General: Alert, no acute distress. Skin: Warm, dry. Head: Normocephalic, atraumatic. Neck: Supple, trachea midline. Eye: Extraocular movements are intact. Ears, nose, mouth and throat: mucosa moist. Cardiovascular: Regular, Normal peripheral perfusion. Respiratory: Lungs are clear to auscultation, respirations are non-labored, breath sounds are equal, Symmetrical chest wall expansion. Gastrointestinal: Soft, some mild right lower quadrant abdominal pain to palpation, Non distended Musculoskeletal: Normal ROM, no deformity. Neurological: Alert and oriented, No focal neurological deficit observed. Psychiatric: Cooperative, appropriate mood & affect. Course 2 Vital Signs: Vital signs: Vital Signs Temperature 97.9 F 05/11/24 18:09 Pulse Rate 64 05/11/24 20:49 Respiratory Rate 16 05/11/24 20:49 Blood Pressure 115/81 05/11/24 20:49 Pulse Oximetry 96 05/11/24 20:49 Oxygen Delivery Me thod Room Air 05/11/24 20:49 MDM - Abdominal Pain Medical Decision Making Medical decision making: Differential diagnosis for this patient with right lower quadrant abdominal pain including but not limited to and based on the above HPI, review of systems and physical exam: Ureterolithiasis. Urinary tract infection. Appendicitis. colitis. small bowel obstruction. Crohn's flare. Pancreatitis. Cholelithiasis or cholecystitis. Hepatitis. Diverticulitis. Constipation. ovarian cyst. ovarian torsion Workup: Orders were placed to evaluate differential diagnosis based on the above differential, HPI and exam: Lab Review: Laboratory results were reviewed and interpreted by myself the emergency room physician. Lab work unremarkable. No leukocytosis. No anemia. No renal failure. Urinalysis is negative for infection or hematuria. CRP is negative. CT of the abdomen pelvis: Fairly unremarkable. Some fluid in the bowel which might indicate an enteritis. This was reviewed and interpreted by myself the emergency room physician. I also reviewed the radiology report. I reviewed the patient's medical record Reexamination: Patient remained stable. No increased work of breathing. No altered mental status. No focal motor deficits. Assessment and plan: Abdominal ?IV Toradol in the emergency room. - Discharged home - Discussed plan with patient. Answered any questions. - Evaluation and treatment of this problem were appropriate in the emergency setting. Lab Data 05/11/24 18:43 05/11/24 18:43 Labs/Radiology: Radiology Impressions Abdomen/Pelvis CT 05/11/24 19:21 IMPRESSION: 1. Prominent fluid in the small bowel without dilation reflect an enteritis. 2. IUD in the uterine cavity. Laboratory Results WBC 10.62 10^3/uL (3.29-11.43) 05/11/24 18:43 RBC 4.45 10^6/uL (3.85-5.65) 05/11/24 18:43 Hgb 13.00 g/dL (11.27-16.99) 05/11/24 18:43 Hct 38.9 % (36-47) 05/11/24 18:43 MCV 87.4 fl (85-98) 05/11/24 18:43 MCH 29.2 pg (27-33) 05/11/24 18:43 MCHC 33.4 g/dL (30-55) 05/11/24 18:43 RDW 12.8 % (12.1-15.1) 05/11/24 18:43 Plt Count 301 10^3/cmm (157-399) 05/11/24 18:43 MPV 9.7 fL (7.4-10.4) 05/11/24 18:43 Neut % (Auto) 56.0 % 05/11/24 18:43 Lymph % (Auto) 34.2 % 05/11/24 18:43 Perkins % (Auto) 8.2 % 05/11/24 18:43 Eos % (Auto) 0.9 % 05/11/24 18:43 Baso % (Auto) 0.4 % 05/11/24 18:43 Neut # (Auto) 5.95 10^3/uL (1.8-7.7) 05/11/24 18:43 Lymph # (Auto) 3.6 10^3/uL (0.8-4.8) 05/11/24 18:43 Perkins # (Auto) 0.9 10^3/uL (0.2-0.9) 05/11/24 18:43 Eos # (Auto) 0.1 10^3/uL (0.0-0.8) 05/11/24 18:43 Baso # (Auto) 0.0 10^3/uL (0.0-0.1) 05/11/24 18:43 Nucleated RBC % (auto) 0 % 05/11/24 18:43 Nucleated RBCs # 0.0 /100WBC 05/11/24 18:43 Sodium 138 mmol/L (136-145) 05/11/24 18:43 Potassium 3.8 mmol/L (3.5-5.1) 05/11/24 18:43 Chloride 103 mmol/L (98-107) 05/11/24 18:43 Carbon Dioxide 24 mmol/L (22-29) 05/11/24 18:43 Anion Gap 14.8 (5-19) 05/11/24 18:43 BUN 11 mg/dL (6-20) 05/11/24 18:43 Creatinine 0.5 mg/dL (0.5-0.9) 05/11/24 18:43 GFR Calculation 152.9 mL/min (90-130) H 05/11/24 18:43 Glucose 81 mg/dL (65-115) 05/11/24 18:43 Calculated Osmolality 284 mOsm/kg (285-295) L 05/11/24 18:43 Calcium 9.1 mg/dL (8.5-10.5) 05/11/24 18:43 Total Bilirubin 0.2 mg/dL (0.15-1.2) 05/11/24 18:43 AST 15 U/L (0-32) 05/11/24 18:43 ALT 14 U/L (0-33) 05/11/24 18:43 Alkaline Phosphatase 62 U/L (35-105) 05/11/24 18:43 C-Reactive Protein 3.0 mg/L (0.0-4.9) 05/11/24 18:43 Total Protein 6.8 g/dL (6.6-8.7) 05/11/24 18:43 Albumin 4.3 g/dL (3.5-5.2) 05/11/24 18:43 Globulin 2.5 g/dL (1.3-4.6) 05/11/24 18:43 Lipase 27 U/L (13-60) 05/11/24 18:43 HCG, Qual Negative (Negative) 05/11/24 18:43 Urine Color Yellow (Yellow) 05/11/24 18:32 Urine Appearance Clear (CLEAR) 05/11/24 18:32 Urine pH 5 (5-7) 05/11/24 18:32 Ur Specific [place] 1.030 (1.005-1.030) 05/11/24 18:32 Urine Protein Neg (Negative) 05/11/24 18:32 Urine Glucose (UA) Norm (Normal) 05/11/24 18:32 Urine Ketones Negative (Negative) 05/11/24 18:32 Urine Blood Neg (Negative) 05/11/24 18:32 Urine Nitrate Negative (Negative) 05/11/24 18:32 Urine Bilirubin Neg (Negative) 05/11/24 18:32 Urine Urobilinogen Norm mg/dL (Negative) 05/11/24 18:32 Ur Leukocyte Esterase Negative (Negative) 05/11/24 18:32 Urine RBC 0-2 /hpf (0-2) 05/11/24 18:32 Urine WBC 0-5 /hpf (0-5) 05/11/24 18:32 Ur Squamous Epith Cells 0-5 /hpf (0-5) 05/11/24 18:32 Amorphous Sediment Not Reportable 05/11/24 18:32 Urine Bacteria None seen /hpf (NONE) 05/11/24 18:32 Hyaline Casts 3.71 /lpf 05/11/24 18:32 All radiology interpretation(s) finalized by discharge Discharge Plan Discharge Patient Disposition: Home Clinical Impression: Abdominal pain Condition: Stable Prescriptions: New diclofenac sodium 50 mg tablet,delayed release (DR/EC) 50 mg PO BID PRN (Reason: pain) Qty: 14 0RF No Action sertraline 50 mg tablet 50 mg PO DAILY 90 Days Qty: 90 0RF Discharge Orders: Discharge ED (Routine); Ordered 05/11/24 Ordered By: Rosemary Lopes Referrals: Deandra Shaver, SECURITY ADVISOR [Primary Care Provider] - Discharge Diet: Usual diet Discharge Activity: Increase activity as tolerated Patient Instructions: Abdominal Pain (ED), Opioid Safety, Pain Management Activity Restrictions/Additional Instructions: Thank you for choosing [facility] for your healthcare needs today. Please realize this is an emergency room and that we are providing you with a medical screening exam and this may not be complete and all inclusive of all the testing and or work up that you may need to determine your ailment or severity of your illness. You have been screened and evaluated and felt safe for discharge. Health conditions do change or evolve sometimes and as such it is important that you follow up with your Primary Doctor to be re checked, 3-5 days is a general good time frame for follow up. You are always welcome to return to the ED for re assessment if your symptoms are worsening or you have new concerns Print Language: Occitan Coding Level of Care Code ED Cut And Cover Line Worker for Anabelle Reyes
[2024-05-11 18:55] LABS: Bacteria Urine None Seen /hpf; Hyaline Casts Urine 3.71 /lpf; RBC Urine 0-2 /hpf (0-2); Squamous Epithelial Cell Urine 0-5 /hpf (0-5); WBC Urine 0-5 /hpf (0-5)
[2024-05-11 19:03] LABS: Basophils % 0.4 %; Eosinophils # 0.1 10^3/uL (0.0-0.8); Eosinophils % 0.9 %; Hematocrit 38.9 % (36-47); Lymphocytes # 3.6 10^3/uL (0.8-4.8); Lymphocytes % 34.2 %; Mean Corpuscular HGB Conc 33.4 g/dL (30-55); Mean Corpuscular Hemoglobin 29.2 pg (27-33); Mean Corpuscular Volume 87.4 fl (85-98); Mean Platelet Volume 9.7 fL (7.4-10.4); Monocytes # 0.9 10^3/uL (0.2-0.9); Monocytes % 8.2 %; Neutrophils # 5.95 10^3/uL (1.8-7.7); Nucleated Red Blood Cells % 0 %; Platelet Count 301 10^3/cmm (157-399); Red Blood Count 4.45 10^6/uL (3.85-5.65); Red Cell Distribution Width 12.8 % (12.1-15.1); White Blood Count 10.62 10^3/uL (3.29-11.43)
[2024-05-11 19:09] LABS: HCG, Serum Qual Negative (Negative)
[2024-05-11 19:16] LABS: Add Urine Microscopic? YES; Bilirubin Urine Neg (Negative); Blood Urine Neg (Negative); Glucose Urine UA Norm (Normal); Ketones Urine Negative (Negative); Leukocyte Esterase Urine Negative (Negative); Nitrate Urine Negative (Negative); Protein Urine Neg (Negative); Urine Appearance Clear (CLEAR); Urine Color Yellow (Yellow); Urobilinogen Urine Norm (Negative); pH Urine 5 (5-7)
[2024-05-11 19:17] LABS: Add Urine Culture? No
[2024-05-11 19:19] LABS: Alanine Aminotransferase 14 U/L (0-33); Albumin Level 4.3 g/dL (3.5-5.2); Alkaline Phosphatase 62 U/L (35-105); Anion Gap 14.8 (5-19); Aspartate Amino Transferase 15 U/L (0-32); Blood Urea Nitrogen 11 mg/dL (6-20); Calcium 9.1 mg/dL (8.5-10.5); Carbon Dioxide 24 mmol/L (22-29); Chloride 103 mmol/L (98-107); Globulin 2.5 g/dL (1.3-4.6); Glomerular Filtration Rate 152.9 mL/min (90-130); Glucose 81 mg/dL (65-115); Lipase 27 U/L (13-60); Osmolality Calculated 284 mOsm/kg (285-295); Potassium 3.8 mmol/L (3.5-5.1); Sodium 138 mmol/L (136-145); Total Bilirubin 0.2 mg/dL (0.15-1.2); Total Protein 6.8 g/dL (6.6-8.7)
--- NOTE | 2024-05-11 19:21 | CTR_ITS ---
PROCEDURE INFORMATION: Exam: CT Abdomen And Pelvis With Contrast Exam date and time: 05/11/2024 8:17 PM Age: 24 years old Clinical indication: Abdominal pain; Generalized; Prior surgery; Surgery date: 6+ months; Surgery type: Csection TECHNIQUE: Imaging protocol: Computed tomography of the abdomen and pelvis with contrast. Radiation optimization: All CT scans at this facility use at least one of these dose optimization techniques: automated exposure control; mA and/or kV adjustment per patient size (includes targeted exams where dose is matched to clinical indication); or iterative reconstruction. Contrast material: OMNIPAQUE 350; Contrast volume: 100 ml; Contrast route: INTRAVENOUS (IV); COMPARISON: US transvaginal [id number] 08/15/2022 11:20 AM RADIATION DOSE METRICS: Total DLP (mGy-cm): 693.73 FINDINGS: Liver: Normal. No mass. Gallbladder and biliary ducts: Normal. No calcified stones. No ductal dilation. Pancreas: Normal. No ductal dilation. Spleen: Normal. No splenomegaly. Adrenal glands: Normal. No mass. Kidneys and ureters: Normal. No hydronephrosis. Stomach and bowel: Prominent fluid in the small bowel without dilation reflect an enteritis. Appendix: No evidence of appendicitis. Intraperitoneal space: Unremarkable. No free air. No significant fluid collection. Vasculature: Unremarkable. No abdominal aortic aneurysm. Lymph nodes: Unremarkable. No enlarged lymph nodes. Urinary bladder: Unremarkable as visualized. Reproductive: IUD in the uterine cavity. Bones/joints: Unremarkable. No acute fracture. Soft tissues: Unremarkable. CT/CT abdomen pelvis w con* [id number] IMPRESSION: 1. Prominent fluid in the small bowel without dilation reflect an enteritis. 2. IUD in the uterine cavity.
[2024-05-11] MEDS: iohexol 350 mg/mL 500 mL Btl (per mL) IV (20:21)
[2024-05-11 20:49] VITALS: BP 115/81; PULSE 64; RESP 16; O2SAT 96
[2024-05-11] MEDS: ketorolac 30 mg/mL INJ IVP (21:17)
[2024-05-11 21:27] VITALS: BP 111/60; PULSE 77; RESP 16; O2SAT 97
== END 2024-05-11 21:24 | disposition home or self-care (01) ==
PROVIDERS: Emergency Medicine; Emergency Provider Emergency Medicine; PCP Registered Nurse
DX: R10.9 Unspecified abdominal pain (principal)
CPT/HCPCS: 36415; 74177; 80053; 81001; 83690; 84703; 85025; 86140; 96374; 99285; J1885

== ENCOUNTER → 2024-08-26 15:53 | Outpatient (BNVA) | payer OTHER, SELFPAY | PROVIDERS: PCP Registered Nurse; Visit Provider Nurse Practitioner Women's Health | DX: Z01.419 Encounter for gynecological examination (general) (routine) without abnormal findings (principal) | CPT/HCPCS: 88175 ==